=== PATIENT | female | born 2005 | race Caucasian/White ===

== ENCOUNTER 2024-03-04 12:42 | Emergency (ER) | payer OTHER, SELFPAY ==
--- NOTE | 2024-03-04 12:57 | EDPHYS ---
Physician Documentation [facility] Name: Mariella Churchill Age: 18 yrs Sex: Female : 2005 Arrival Date: 03/04/2024 Time: 12:42 Bed IW1 Private MD: ED Physician Cuong Ziegler HPI: 03/04 12:58 This 18 yrs old Female presents to ER via Ambulatory with complaints of Flu ec2 Symptoms. 12:58 Patient arrives today for several days of URI symptoms symptoms. Reports has been ec2 having some congestion, symptoms have improved, is here because she needs a doctor's note. No fevers, no vomiting, no issues with p.o. intake. Has been taking OTC meds . 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 - Infectious Disease History:: Denies. - Social history:: Smoking status: Patient reports the use of cigarette tobacco products, denies chronic smoking, but will smoke occasionally. ROS: 12:58 Constitutional: as per hpi ec2 Exam: 12:58 Constitutional: GEN: NAD Head: atraumatic Eyes: EOMI Ears: External ears are ec2 normal. CV: regular rate LUNGS: no respiratory distress, no wheezes, no rales, rhonchi ABD: non-distended SKIN: no evidence of rashes MSK: no evidence of trauma Vital Signs: 12:51 BP 128 / 95; Pulse 70; Resp 17; Temp 98.4; Pulse Ox 100% ; Weight 81.65 kg; Height 5 ll1 ft. 7 in. ; Pain 06/05; 12:51 Body Mass Index 28.19 (81.65 kg, 170.18 cm) ll1 12:51 Pain Scale: Adult ll1 MDM: 12:56 Patient medically screened. ec2 12:58 Data reviewed: vital signs. ED course: Patient arrives today for URI signs and ec2 symptoms. Examination remarkable for well-appearing nontoxic individuals otherwise in no acute distress with a reassuring lamination. Offered viral swabs however patient declined, states that she is struggling his work issues. Will discharge home. Return precautions given. Presentation consistent with viral infection. Doubt pneumonia given lack of focal lung sounds. Accordingly we will forego radiograph of the chest. . Administered Medications: No medications were administered Disposition Summary: 03/04/24 12:56 Discharge Ordered Notes: Location: Home ec2 Condition: Stable ec2 Diagnosis - Viral infection, unspecified ec2 Followup: ec2 - With: Private Physician - When: - Reason: Re-evaluation by your physician Discharge Instructions: - Discharge Summary Sheet ll1 - Viral Illness, Adult ec2 Forms: - Work release form ll1 - Medication Reconciliation Form ec2 - Antibiotic Education ec2 - Prescription Opioid Use ec2 - Patient Portal Instructions ec2 - Leadership Thank You Letter ec2 Signatures: Dispatcher [employer] Rosie Mariscal, LORNE RN ll1 Cuong Ziegler MD MD ec2
--- NOTE | 2024-03-04 12:57 | ER ---
Nurse's Notes [facility] Name: Mariella Churchill Age: 18 yrs Sex: Female : 2005 Arrival Date: 03/04/2024 Time: 12:42 Bed IW1 Private MD: Diagnosis: Viral infection, unspecified Presentation: 03/04 12:48 Ebola Screen: Patient denies travel to an Ebola-affected area in the 21 days before ll1 illness onset. Initial Sepsis Screen: Does the patient meet any 2 criteria? No. Patient's initial sepsis screen is negative. Does the patient have a suspected source of infection? No. Patient's initial sepsis screen is negative. Risk Assessment: Do you want to hurt yourself or someone else? Patient reports no desire to harm self or others. 12:48 Method Of Arrival: Ambulatory ll1 12:51 Chief complaint: Patient states: Cough. congestion, BANUELOS, fatigue since Saturday. ll1 Coronavirus screen: Client denies travel out of the [place] in the last 14 days. congestion, cough unrelated to allergies, fatigue, headache, runny nose, sore throat, Client presents with at least one sign or symptom that may indicate coronavirus-19. Standard/surgical mask placed on the client. Onset of symptoms was March 02, 2024. 12:51 Acuity: MARK 4 ll1 Triage Assessment: 12:48 General: Appears in no apparent distress. Behavior is calm, cooperative, appropriate ll1 for age, Reports fatigue for. EENT: Reports nasal congestion. Respiratory: Reports cough that is. 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 - Infectious Disease History:: Denies. - Social history:: Smoking status: Patient reports the use of cigarette tobacco products, denies chronic smoking, but will smoke occasionally. Screenin:05 [facility] ED Fall Risk Assessment (Adult) History of falling in the last 3 months, ll1 including since admission No falls in past 3 months (0 pts) Confusion or Disorientation No (0 pts) Intoxicated or Sedated No (0 pts) Impaired Gait No (0 pts) Mobility Assist Device Used No (0 pt) Altered Elimination No (0 pt) Score/Fall Risk Level 0 - 2 = Low Risk Maintained a safe environment, Hourly rounding (assess needs \T\ fall precautionary measures) done. Abuse screen: Denies threats or abuse. Nutritional screening: No deficits noted. Tuberculosis screening: No symptoms or risk factors identified. Assessment: 13:06 Reassessment: No changes from previously documented assessment. Patient and/or family ll1 updated on plan of care and expected duration. Pain level reassessed. Patient is alert, oriented x 3, equal unlabored respirations, skin warm/dry/pink. Pain: Denies pain. Vital Signs: 12:51 BP 128 / 95; Pulse 70; Resp 17; Temp 98.4; Pulse Ox 100% ; Weight 81.65 kg; Height 5 ll1 ft. 7 in. ; Pain 1/10; 12:51 Body Mass Index 28.19 (81.65 kg, 170.18 cm) 1 12:51 Pain Scale: Adult ll1 ED Course: 12:47 Patient arrived in ED. im 12:48 Cuong Ziegler MD is Attending Physician. ec2 12:48 Arm band placed on. ll1 12:53 Triage completed. ll1 13:06 Patient has correct armband on for positive identification. Provided Education on: ll1 return to ED for worsening symptoms. 13:06 No provider procedures requiring assistance completed. Patient did not have IV access ll1 during this emergency room visit. Administered Medications: No medications were administered Medication: 13:06 VIS not applicable for this client. ll1 Outcome: 12:56 Discharge ordered by . ec2 13:06 Patient left the ED. ll1 13:06 Discharged to home ambulatory, ll1 13:06 Condition: stable 13:06 Discharge instructions given to patient, family, Instructed on discharge instructions, follow up and referral plans. Demonstrated understanding of instructions, follow-up care, Signatures: Rosie Lau RN RN ll1 Lori Pugh Cuong Ziegler MD MD ec2
[2024-03-04 13:16] VITALS: BP 128/95; TEMP 98.4; O2SAT 100
== END 2024-03-04 13:06 | disposition home or self-care (01) ==
LOC: ER 12:42
DX: B34.9 Viral infection, unspecified (principal)